=== PATIENT | female | born 1975 | race Caucasian/White ===

== ENCOUNTER 2017-07-23 07:20 | Day surgery (SDC) | payer OTHER ==
[~2017-07-23 07:20] MED LIST: BUPIVACAINE HCL 0.25% /EPINEPHRINE INJ/PF 30 ML SDV ONE
[2017-07-23] MEDS ORDERED: SUCCINYLCHOLINE CHLORIDE INJ 200 MG/10 ML VIAL ONE (07:49)
[2017-07-23] MEDS ORDERED: ONDANSETRON HCL INJ/PF 4 MG/2 ML SDV ONE (07:49)
[2017-07-23] MEDS ORDERED: LIDOCAINE 2% INJ-PF (20 MG/ML) 2 ML AMPUL ONE (07:49)
[2017-07-23] MEDS ORDERED: DEXAMETHASONE SOD PHOSPHATE INJ 4 MG/1 ML VIAL ONE (07:49)
[2017-07-23] MEDS ORDERED: METOCLOPRAMIDE HCL INJ/PF 10 MG/2 ML SDV ONE (07:49)
[2017-07-23] MEDS ORDERED: ROCURONIUM BROMIDE INJ 50 MG/5 ML VIAL IV ONE (07:49)
[2017-07-23 08:06] LABS: APPEARANCE,URINE SLIGHTLY-CLOUDY; BILIRUBIN,URINE NEGATIVE (NEGATIVE); COLOR,URINE YELLOW; GLUCOSE, URINE NEGATIVE (NEGATIVE); KETONES,URINE NEGATIVE (NEGATIVE); LEUKOCYTE ESTERASE,URINE NEGATIVE (NEGATIVE); NITRITE,URINE NEGATIVE (NEGATIVE); PROTEIN,URINE 30 mg/dL (NEGATIVE); URINE SPECIFIC GRAVITY 1.024; UROBILINOGEN,URINE NEGATIVE mg/dL (<2.0)
[2017-07-23] MEDS ORDERED: CEFAZOLIN 2 GM/D5W RTU 2 GM/50 ML RTUPB IV ONE (08:13)
[2017-07-23 08:28] LABS: ABSOLUTE EOSINOPHILS # (AUTO) 0.1 10^3/uL (0.0-0.6); ABSOLUTE LYMPHOCYTES (AUTO) 1.9 10^3/uL (0.5-4.7); ABSOLUTE MONOCYTES (AUTO) 0.6 10^3/uL (0.1-1.4); ABSOLUTE NEUT (AUTO) 4.8 10^3/uL (1.7-8.2); BASOPHILS % (AUTO) 0.6 % (0-2); EOSINOPHILS % (AUTO) 1.9 % (0-6); HEMATOCRIT 37.1 % (36.0-47.0); HEMOGLOBIN 12.3 g/dL (12.0-15.5); LYMPHOCYTES % (AUTO) 25.2 % (13-45); MEAN CORPUSCULAR HEMOGLOBIN 27.3 pg (27.0-33.4); MEAN CORPUSCULAR VOLUME 83 fl (80-97); MONOCYTES % (AUTO) 7.9 % (3-13); PLATELET COUNT 374 10^3/uL (150-450); RED BLOOD COUNT 4.49 10^6/uL (3.72-5.28); RED CELL DISTRIBUTION WIDTH 14.6 % (11.5-14.0); SEGMENTED NEUTROPHILS % (AUTO) 64.4 % (42-78); TOTAL CELLS COUNTED % (AUTO) 100 %; WHITE BLOOD COUNT 7.5 10^3/uL (4.0-10.5)
--- NOTE | 2017-07-23 08:48 | RADIOLOGY REPORT (SQ) ---
EXAM DESCRIPTION: CHEST SINGLE VIEW COMPLETED DATE/TIME: 07/23/2017 8:26 am REASON FOR STUDY: PREOP COMPARISON: None. EXAM PARAMETERS: NUMBER OF VIEWS: One view. TECHNIQUE: Single frontal radiographic view of the chest acquired. RADIATION DOSE: NA LIMITATIONS: None. FINDINGS: LUNGS AND PLEURA: No opacities, masses or pneumothorax. No pleural effusion. MEDIASTINUM AND HILAR STRUCTURES: No masses. Contour normal. HEART AND VASCULAR STRUCTURES: Heart normal in size. Normal vasculature. BONES: No acute findings. HARDWARE: None in the chest. OTHER: No other significant finding. IMPRESSION: NO ACUTE RADIOGRAPHIC FINDING IN THE CHEST. TECHNICAL DOCUMENTATION: JOB ID: [id number] [employer]- All Rights Reserved
[2017-07-23 08:51] LABS: ALANINE AMINOTRANSFERASE 28 U/L (9-52); ALKALINE PHOSPHATASE 54 U/L (38-126); ANION GAP 10 (5-19); ASPARTATE AMINO TRANSFERASE 16 U/L (14-36); BILIRUBIN,DIRECT 0.1 mg/dL (0.0-0.4); BILIRUBIN,TOTAL 0.1 mg/dL (0.2-1.3); BLOOD UREA NITROGEN 15 mg/dL (7-20); CALCIUM 9.2 mg/dL (8.4-10.2); CARBON DIOXIDE 25 mmol/L (22-30); CHLORIDE 105 mmol/L (98-107); GLUCOSE 99 mg/dL (75-110); POTASSIUM 4.2 mmol/L (3.6-5.0); SODIUM 140.3 mmol/L (137-145); TOTAL PROTEIN 6.6 g/dL (6.3-8.2)
[2017-07-23] MEDS ORDERED: FENTANYL CITRATE INJ/PF 100 MCG/2 ML AMPUL ONE (10:17)
[2017-07-23] MEDS ORDERED: ACETAMINOPHEN 100 ML IV ONE (10:18)
[2017-07-23] MEDS ORDERED: HYDROMORPHONE HCL INJ/PF 2 MG/ML AMPULE ONE ×2 (10:18→14:45)
[2017-07-23] MEDS ORDERED: PROPOFOL INJ 200 MG/20 ML VIAL IV ONE (10:18)
[2017-07-23] MEDS ORDERED: EPHEDRINE SULFATE INJ 50 MG/1 ML AMPULE ONE (10:18)
[2017-07-23] MEDS ORDERED: MIDAZOLAM 2 MG/2 ML INJ ONE (10:18)
[2017-07-23] MEDS ORDERED: BUPIVACAINE HCL 0.25 % INJ/PF (2.5 MG/1 ML) 30 ML VIAL ONE (11:08)
[2017-07-23] MEDS ORDERED: ONDANSETRON HCL INJ/PF 4 MG/2 ML SDV IV PRN ×3 (11:24→17:56)
[2017-07-23] MEDS ORDERED: MEPERIDINE HCL/PF INJ 25 MG/1 ML DISP.SYRIN IV PRN ×2 (11:24→17:16)
[2017-07-23] MEDS ORDERED: PROMETHAZINE HCL INJ 25 MG/1 ML VIAL IV PRN ×3 (11:24→17:16)
[2017-07-23] MEDS ORDERED: MORPHINE SULFATE 10 MG/ML INJ IV PRN (11:24)
[2017-07-23] MEDS ORDERED: OXYCODONE-ACETAMINOPHEN 5-325 MG TABLET PO PRN ×3 (11:24→17:57)
[2017-07-23] MEDS ORDERED: DIPHENHYDRAMINE HCL 50 MG/ML VIAL IV PRN ×2 (11:24→17:16)
[2017-07-23] MEDS ORDERED: FENTANYL CITRATE INJ/PF 100 MCG/2 ML AMPUL IV PRN ×6 (11:24→17:16)
--- NOTE | 2017-07-23 13:10 | EKG REPORT ---
SEVERITY:- NORMAL ECG - SINUS RHYTHM : Confirmed by: Reyes Tomas MD 23-Jul-2017 13:09:14
[2017-07-23] MEDS ORDERED: METHYLENE BLUE 50 MG/10 ML AMPULE ONE (13:27)
[2017-07-23] MEDS ORDERED: CEFAZOLIN INJ 1 GM VIAL ONE (14:42)
[2017-07-23] MEDS: PROMETHAZINE HCL INJ 25 MG/1 ML VIAL ONE ×2 (16:50→17:15)
[2017-07-23] MEDS ORDERED: HYDROMORPHONE HCL INJ/PF 2 MG/ML AMPULE IV PRN (17:44)
[2017-07-23] MEDS: RINGERS SOLUTION,LACTATED 1,000 ML IV PRN (20:06)
[2017-07-24] MEDS: OXYCODONE-ACETAMINOPHEN 5-325 MG TABLET PO PRN ×5 (00:27→18:20)
[2017-07-24] MEDS: RINGERS SOLUTION,LACTATED 1,000 ML IV PRN (05:26)
[2017-07-24 06:52] LABS: HEMATOCRIT 30.4 % (36.0-47.0); MEAN CORPUSCULAR HEMOGLOBIN 27.8 pg (27.0-33.4); MEAN CORPUSCULAR HGB CONC 33.4 g/dL (32.0-36.0); MEAN CORPUSCULAR VOLUME 83 fl (80-97); PLATELET COUNT 314 10^3/uL (150-450); RED BLOOD COUNT 3.66 10^6/uL (3.72-5.28); RED CELL DISTRIBUTION WIDTH 14.3 % (11.5-14.0); WHITE BLOOD COUNT 14.4 10^3/uL (4.0-10.5)
[2017-07-24 06:55] LABS: HEMOGLOBIN 10.2 g/dL (12.0-15.5)
--- NOTE | 2017-07-24 08:28 | PDOC CONSULTATION ---
Consultation Consult Date: 07/23/17 Consult reason:: cystotomy History of Present Illness History of Present Illness: KARI JI is a 42 year old female Past Medical History Cardiac Medical History: Denies: Coronary Artery Disease, Myocardial Infarction, Hypertension Pulmonary Medical History: Denies: Asthma, Bronchitis, Chronic Obstructive Pulmonary Disease (COPD), Pneumonia Neurological Medical History: Denies: Seizures Musculoskeltal Medical History: Denies: Arthritis Hematology: Denies: Anemia Social History Smoking Status: Never Smoker Family History Parental Family History Reviewed: No Children Family History Reviewed: No Sibling(s) Family History Reviewed.: No Medication/Allergy Home Medications: No Home Medications 07/19/17 Allergies/Adverse Reactions: No Known Allergies Allergy (Unverified 07/19/17 13:57) Physical Exam Vital Signs: Temp Pulse Resp BP Pulse Ox 97.2 F 92 18 123/67 97 07/23/17 18:40 07/23/17 18:40 07/23/17 18:40 07/23/17 18:40 07/23/17 18:40 Intake & Output 07/23/17 07/24/17 07/25/17 06:59 06:59 06:59 Intake Total 3700 Output Total 700 Balance 3000 Weight 72.57 kg Results Laboratory Results: 07/24/17 06:33 07/23/17 08:15 07/23/17 07/23/17 07/23/17 07:35 08:15 08:15 WBC 7.5 RBC 4.49 Hgb 12.3 Hct 37.1 MCV 83 MCH 27.3 MCHC 33.0 RDW 14.6 H Plt Count 374 Seg Neutrophils % 64.4 Lymphocytes % 25.2 Monocytes % 7.9 Eosinophils % 1.9 Basophils % 0.6 Absolute Neutrophils 4.8 Absolute Lymphocytes 1.9 Absolute Monocytes 0.6 Absolute Eosinophils 0.1 Absolute Basophils 0.0 Sodium Potassium Chloride Carbon Dioxide Anion Gap BUN Creatinine Est GFR ( Amer) Est GFR (Non-Af Amer) Glucose Calcium Total Bilirubin AST ALT Alkaline Phosphatase Total Protein Albumin Urine Color YELLOW Urine Appearance SLIGHTLY-CLOUDY Urine pH 5.0 Ur Specific [place] 1.024 Urine Protein 30 H Urine Glucose (UA) NEGATIVE Urine Ketones NEGATIVE Urine Blood LARGE H Urine Nitrite NEGATIVE Ur Leukocyte Esterase NEGATIVE Urine WBC (Auto) 16 Urine RBC (Auto) >182 Blood Type O POSITIVE Antibody Screen NEGATIVE 07/23/17 07/24/17 08:15 06:33 WBC 14.4 H RBC 3.66 L Hgb 10.2 L D Hct 30.4 L MCV 83 MCH 27.8 MCHC 33.4 RDW 14.3 H Plt Count 314 Seg Neutrophils % Lymphocytes % Monocytes % Eosinophils % Basophils % Absolute Neutrophils Absolute Lymphocytes Absolute Monocytes Absolute Eosinophils Absolute Basophils Sodium 140.3 Potassium 4.2 Chloride 105 Carbon Dioxide 25 Anion Gap 10 BUN 15 Creatinine 0.82 Est GFR ( Amer) > 60 Est GFR (Non-Af Amer) > 60 Glucose 99 Calcium 9.2 Total Bilirubin 0.1 L AST 16 ALT 28 Alkaline Phosphatase 54 Total Protein 6.6 Albumin 4.0 Urine Color Urine Appearance Urine pH Ur Specific [place] Urine Protein Urine Glucose (UA) Urine Ketones Urine Blood Urine Nitrite Ur Leukocyte Esterase Urine WBC (Auto) Urine RBC (Auto) Blood Type Antibody Screen Impressions: Chest X-Ray 07/23/17 00:00 IMPRESSION: NO ACUTE RADIOGRAPHIC FINDING IN THE CHEST. Assessment & Plan - Plan Summary Plan Summary: Intraoperative Consult Pre-op diagnosis: Cystotomy Post-op Diagnosis: Same Procedure: Laparoscopic closure of cystotomy Anesthesia: General Surgeon: Lauren Procedure: During a laparoscopic assisted vaginal hysterectomy a cystotomy was made while dissecting adhesions densely occurring over the bladder. The small cystotomy was recognized and a urology consultation was obtained intraoperatively. The small cystotomy was identified laparoscopically in the posterior superior portion of the bladder on the left side of the patient. An attempt was made using conventional suture to close the cystotomy which was unsuccessful. Utilizing a V lock suture, the cystotomy was closed in a running fashion. The cystotomy was then visualized both laparoscopically and cystoscopically. It appeared that there was good reapproximation of the cystotomy. A Serrano catheter was then placed in the bladder. The remainder the procedure will be dictated by Dr. Vargas.
[2017-07-24] MEDS ORDERED: SIMETHICONE 80 MG TAB.CHEW PO PRN (10:50)
[2017-07-24] MEDS ORDERED: DOCUSATE SODIUM 100 MG CAPSULE PO ONE (12:30)
--- NOTE | 2017-07-24 13:32 | PDOC PROGRESS REPORT ---
Subjective Progress Note for:: 07/24/17 Subjective:: no flatus, no BM, pain well controlled. Tolerating po without difficulty. no nausea/emesis/no f/c Reason For Visit: N93.9 ABNORMAL UTERINE AND VAGINAL BLEEDING, UNSPE Physical Exam - Physical Exam Vital Signs: Temp Pulse Resp BP Pulse Ox 98.2 F 63 15 111/55 L 98 07/24/17 11:41 07/24/17 11:41 07/24/17 11:41 07/24/17 11:41 07/24/17 11:41 Intake & Output 07/23/17 07/24/17 07/25/17 06:59 06:59 06:59 Intake Total 4900 1100 Output Total 2500 1300 Balance 2400 -200 Weight 72.57 kg General appearance: PRESENT: no acute distress, well-developed, well-nourished Head exam: PRESENT: atraumatic, normocephalic Respiratory exam: PRESENT: clear to auscultation brigid, symmetrical, unlabored Cardiovascular exam: PRESENT: RRR. ABSENT: diastolic murmur, rubs, systolic murmur Pulses: PRESENT: normal dorsalis pedis pul, +2 pedal pulses bilateral Vascular exam: PRESENT: normal capillary refill GI/Abdominal exam: PRESENT: normal bowel sounds, soft, tenderness - incisions c/ d/i, approp abd ttp, other. ABSENT: distended, guarding, mass, organolmegaly, rebound Rectal exam: PRESENT: deferred Extremities exam: PRESENT: full ROM. ABSENT: calf tenderness, clubbing, pedal edema Neurological exam: PRESENT: alert, awake, oriented to person, oriented to place , oriented to time, oriented to situation, CN II-XII grossly intact. ABSENT: motor sensory deficit Psychiatric exam: PRESENT: appropriate affect, normal mood. ABSENT: homicidal ideation, suicidal ideation Skin exam: PRESENT: dry, intact, warm. ABSENT: cyanosis, rash Result Laboratory Results: 07/24/17 06:33 07/23/17 08:15 07/24/17 06:33 WBC 14.4 H RBC 3.66 L Hgb 10.2 L D Hct 30.4 L MCV 83 MCH 27.8 MCHC 33.4 RDW 14.3 H Plt Count 314 Impressions: Chest X-Ray 07/23/17 00:00 IMPRESSION: NO ACUTE RADIOGRAPHIC FINDING IN THE CHEST. Status: Imported from PACS Assessment & Plan - Diagnosis (1) Leiomyoma of body of uterus Qualifiers: Uterine leiomyoma location: intramural, submucous, and subserous Qualified Code(s): D25.1 - Intramural leiomyoma of uterus; D25.0 - Submucous leiomyoma of uterus; D25.0 - Submucous leiomyoma of uterus; D25.2 - Subserosal leiomyoma of uterus; D25.2 - Subserosal leiomyoma of uterus Is this a current diagnosis for this admission?: Yes Plan: s/p hysterectomy. If continues to do well then may be able to discharge this pm. (2) cystotomy Is this a current diagnosis for this admission?: Yes Plan: Incidental cystotomy during bladder dissection - bladder adhered over fibroid at prior uterine scar from section. Repaired by Dr. Aguilar. Plan per Urology to have berg to gravity remain for approx 2wks. Appreciate Dr Aguilar's asssistance. - Time Time Spent with patient: Less than 15 minutes Medications reviewed and adjusted accordingly: Yes Anticipated discharge: Home Within: within 48 hours - Inpatient Certification Based on my medical assessment, after consideration of the patient's comorbidities, presenting symptoms, or acuity I expect that the services needed warrant INPATIENT care.: Yes I certify that my determination is in accordance with my understanding of Medicare's requirements for reasonable and necessary INPATIENT services [42 CFR 412.3e].: Yes Medical Necessity: Need for Pain Control Post Hospital Care: D/C Occupational Therapy Manager Documentation
[2017-07-24] MEDS ORDERED: DOCUSATE SODIUM 100 MG CAPSULE PO SCH (18:00)
[2017-07-24 18:41] VITALS: BP 114/75
--- NOTE | 2017-07-25 07:47 | PDOC DISCHARGE SUMMARY ---
General - Admit/Disc Date/PCP Admission Date/Primary Care Provider: Anna Vargas MD Discharge Date: 07/24/17 - Discharge Diagnosis (1) Leiomyoma of body of uterus Is this a current diagnosis for this admission?: Yes Summary: Now s/p LAVH, Cystoscopy with Culdoplasty. Due to multiple fibroids including fibroid overlying prior uterine scar with adhered bladder to fibroid - incidental cystotomy was made. It was recognized with cystoscopy during the procedure and Urology was called. Dr. Aguilar (Urologist) came in for assistance and evaluation of cystotomy and repaired the cystotomy. I very much appreciate his assistance with the care of this patient. (2) cystotomy Is this a current diagnosis for this admission?: Yes Summary: See above note. Dr. Aguilar repaired incidental cystotomy during the hysterectomy yesterday and has recommended that Serrano to gravity remain for approcimately 2 wks. We will re-eval in the office. Leg bag and teaching will be given to the patient prior to discharge. - Additional Information Discharge Diet: As Tolerated Discharge Activity: Activity As Tolerated, Pelvic Rest Prescriptions: Oxycodone HCl/Acetaminophen [Percocet 5-325 mg Tablet] 2 tab PO Q4HP PRN #30 tablet PRN Reason: For Pain Scale 2-4 Simethicone [Mylicon 80 mg Chewable Tablet] 80 mg PO QIDP PRN #90 tab.chew PRN Reason: Simethicone 80 mg PO QIDP PRN #90 tab.chew PRN Reason: Home Medications: Docusate Sodium [Colace 100 mg Capsule] 100 mg PO BID capsule 07/24/17 Oxycodone HCl/Acetaminophen [Percocet 5-325 mg Tablet] 2 tab PO Q4HP PRN #30 tablet 07/24/17 Oxycodone HCl/Acetaminophen [Percocet 5-325 mg Tablet] 2 tab PO Q4HP PRN #30 tablet 07/24/17 Simethicone 80 mg PO QIDP PRN #90 tab.chew 07/24/17 Simethicone [Mylicon 80 mg Chewable Tablet] 80 mg PO QIDP PRN #90 tab.chew 07/24 History of Present Illness Patient complains of: Fibroids, menorrhagia, dysmenorrhea History of Present Illness: KARI JI is a 42 year old female Hospital Course Hospital Course: Admitted to the hospital on 07/23 and underwent LAVH, Cystoscopy, Culdoplasty and Incidental cystotomay repair. Uncomplicated postop course and desires to be discharged to home on POD#1. SHe will f/u in the office in 1 week for eval of bladder as she will be discharged with leg bag. Physical Exam - Physical Exam Vital Signs: Temp Pulse Resp BP Pulse Ox 98.0 F 71 16 115/64 98 07/24/17 16:18 07/24/17 16:18 07/24/17 16:18 07/24/17 16:18 07/24/17 16:18 Intake & Output 07/23/17 07/24/17 07/25/17 06:59 06:59 06:59 Intake Total 4900 1100 Output Total 2500 2200 Balance 2400 -1100 Weight 72.57 kg General appearance: PRESENT: no acute distress, well-developed, well-nourished Head exam: PRESENT: atraumatic, normocephalic Respiratory exam: PRESENT: clear to auscultation brigid, symmetrical, unlabored Cardiovascular exam: PRESENT: RRR. ABSENT: diastolic murmur, rubs, systolic murmur Vascular exam: PRESENT: normal capillary refill GI/Abdominal exam: PRESENT: normal bowel sounds, soft, tenderness - approp ttp, incision c/d/i. ABSENT: distended, guarding, mass, organolmegaly, rebound Rectal exam: PRESENT: deferred Extremities exam: PRESENT: full ROM. ABSENT: calf tenderness, clubbing, pedal edema Neurological exam: PRESENT: alert, awake, oriented to person, oriented to place , oriented to time, oriented to situation, CN II-XII grossly intact. ABSENT: motor sensory deficit Psychiatric exam: PRESENT: appropriate affect, normal mood. ABSENT: homicidal ideation, suicidal ideation Skin exam: PRESENT: dry, intact, warm. ABSENT: cyanosis, rash Result Laboratory Results: 07/24/17 06:33 07/23/17 08:15 07/24/17 06:33 WBC 14.4 H RBC 3.66 L Hgb 10.2 L D Hct 30.4 L MCV 83 MCH 27.8 MCHC 33.4 RDW 14.3 H Plt Count 314 Impressions: Chest X-Ray 07/23/17 00:00 IMPRESSION: NO ACUTE RADIOGRAPHIC FINDING IN THE CHEST. Status: Imported from PACS Plan Discharge Plan: Discharge to home Time Spent: Less than 30 Minutes
--- NOTE | 2017-08-20 12:14 | Operative Report ---
Operative Report DATE OF SURGERY: 07/23/17 PREOPERATIVE DIAGNOSIS: Dysmenorrhea, Menorrhagia, Fibroids POSTOPERATIVE DIAGNOSIS: JOSE RAMON, incidental cystotomy OPERATION: LAVH, Cystoscopy, Culdoplasty, Cystotomy repair SURGEON: CINTIA AQUINO 1ST BEEF PLUCK TRIMMER: FIDELIA FENTON 2ND Golf Course Manager: DEJA MOORE II ANESTHESIA: GA TISSUE REMOVED OR ALTERED: Uterus, cervix, bilateral fallopian tubes COMPLICATIONS: incidental cystotomy ESTIMATED BLOOD LOSS: 200ml INTRAOPERATIVE FINDINGS: enlarged fibroid uterus with moderate scarring from bladder to lower uterine segment. Incidental cystotomy repaired with the assitance of Urology. PROCEDURE: Anesthesia: DOMINICK Hernandez Indications: 42yo with menorrhagia and dysmenorrhea and noted fibroid uterus. She has been on OCPs in past and offered DepotLupron for pain management but declined. She desires definitive management of menorrhagia, dysmenorrhea and fibroid uterus. The risk/benefits/alternatives were reviewed and she desired to proceed with planned procedure. Urine output: 250ml IV fluids: 3400ml Procedure The patient was taken to the operating room where general anesthesia was obtained. The patient was then prepped and placed in the dorsal supine position with lithotomy and prepped and draped in the usual fashion. A speculum was then placed in the patient's vagina and the cervix grasped with a single-tooth tenaculum at approximately the 12 o'clock position of the anterior lip of the cervix. The medium Vesicare device was then placed and suture placed at the 12 o'clock position as well in order to maintain cup against the cervix during procedure. Double-tooth tenaculum and speculum were then removed from the patient's cervix and vagina. Attention was then turned to the abdomen where an infraumbilical skin incision was made and the Veress needle inserted into the abdominal cavity. Aspiration was negative therefore the abdomen was insufflated with carbon dioxide approximately 4 L. After adequate insufflation the Veress needle was removed and the 5 mm Optiview trocar was placed under direct visualization with the laparoscope. Survey of the patient's abdomen and pelvis were performed with findings as noted above. At this time 5mm skin incisions were made approximately 2 cm medial and 4 cm superior to the anterior iliac spine on both the left and the right and then a third and fourth trocar sites placed approximately 4 cm superior to these on both the left and right. 5 mm trochars placed at all of the sites. At this time the right cornua was grasped and the right fallopian tube and utero-ovarian ligament and round ligaments were cauterized and transected in the usual fashion with the LigaSure device the remainder of the uterine vessels in anterior and posterior leaves of the broad ligament as well as cardinal and uterosacral ligaments were coagulated and transected in a serial fashion down to the level of the uterine artery. The uterine artery was then identified and cauterized and transected in the usual fashion with the LigaSure device. The anterior leaf of the broad ligament was then dissected to the midline establishing a bladder flap with a combination of blunt and sharp dissection with notation of difficult dissection due to adhesive disease. Sharp dissection made superiorly bilaterally to the level of the internal os of the cervix. Cautery was then used to make the anterior and posterior colpotomies over the Vesicare device in a circumferential fashion thus freeing the uterus and the cervix which were then removed vaginally and sent to pathology. Prior to the removal of the uterus and the cervix attention was turned to the bilateral fallopian tubes which were serially cauterized and transected and then removed with the uterus and cervix. The ovaries remain in place. Attention was then turned to the vagina where serial vaginal cuff closure was performed with 2-0 Vicryl figure of eight suture placement. Culdoplasty performed in the usual fashion with 2 -0 ethibond suture and prior to cinching down this suture cystoscopy was performed in the usual fashion. During Cystoscopy a small cystotomy was noted in the bladder dome. At this time , Urology was consulted to assist with Cystotomy closure via laparoscope. Please see note from Dr. Moore. Cystoscopy was performed intermittently during cystotomy closure to determine effectiveness of closure. Once closure achieved, attention was then returned to the vagina where vaginal cuff closure was completed. Final look via laparoscope noted hemostasis of vaginal cuff. Interceed placed over cystotomy closure and vaginal cuff to deter adhesions. Pneumoperitoneum was evacuated and all operative sites were noted to be hemostatic. Trocar sites were closed with 3-0monocryl and then overlying dermabond. Ancef 2g given preop and redosed during surgery due to length of procedure. Instrument count was correct times two and patient tolerated the procedure well and was taken to the recovery area awake and in stable location.
== END 2017-07-24 19:15 | disposition home or self-care (01) ==
LOC: OROUT 07:20 → 2N 18:03 → OROUT 07-24 19:15
PROVIDERS: ATTEND Student in an Organized Health Care Education/Training Program
PROC: 0UT7FZZ Resection of Bilateral Fallopian Tubes, Via Natural or Artificial Opening With Percutaneous Endoscopic Assistance (ICD-10-PCS; 2017-07-23)
PROC: 0TQB4ZZ Repair Bladder, Percutaneous Endoscopic Approach (ICD-10-PCS; 2017-07-23)
PROC: 0UT9FZZ Resection of Uterus, Via Natural or Artificial Opening With Percutaneous Endoscopic Assistance (ICD-10-PCS; principal; 2017-07-23 09:30)
DX: D25.1 Intramural leiomyoma of uterus (principal); D25.0 Submucous leiomyoma of uterus; N99.72 Accidental puncture and laceration of a genitourinary system organ or structure during other procedure; N94.6 Dysmenorrhea, unspecified; N93.9 Abnormal uterine and vaginal bleeding, unspecified; N88.8 Other specified noninflammatory disorders of cervix uteri; Z87.891 Personal history of nicotine dependence
CPT/HCPCS: 86900; 86901; 36415; 86850; 85025; 85027; 81025; 80053; 81001; 88307 ×2; 71045; 93005; 93010; 58552; 51860; C1765; J2250; J0690 ×2; J3490 ×3; J1100; J3010; J2765; J1170; J2550; J0330; J2405; J7120 ×2; J2704; J0131; Q9968; 840

== ENCOUNTER → 2020-05-11 | Outpatient (CLI) | payer OTHER ==
--- NOTE | 2020-05-11 08:11 | WOMENS IMAGING REPORT ---
EXAM DESCRIPTION: BILAT SCREENING MAMMO W/CAD IMAGES COMPLETED DATE/TIME: 05/11/2020 7:14 am REASON FOR STUDY: Z12.31 ENCNTR SCREEN MAMMOGRAM FOR MALIGNANT NEOPLASM OF BREAST Z12.31 ENCNTR SCR EEN MAMMOGRAM FOR MALIGNANT NEOPLASM OF [place] COMPARISON: None. EXAM PARAMETERS: Standard craniocaudal and mediolateral oblique views of each breast recorded using digital acquisition. Read with the assistance of CAD. .[facility] - A [place] [employer] Version 9.2 LIMITATIONS: None. FINDINGS: No suspicious masses, suspicious calcifications or architectural distortion. No areas of c oncern. IMPRESSION: NEGATIVE MAMMOGRAM. BIRADS 1 BREAST DENSITY: b. There are scattered areas of fibroglandular density. BIRAD: ASSESSMENT: 1 NEGATIVE RECOMMENDATION: ROUTINE SCREENING COMMENT: The patient has been notified of the results by letter per MQSA requirements. Additional no tification policies are in place for contacting patient with suspicious or incomplete findings. Quality ID #225: The [employer] recommends an annual screening mammogram for women aged 40 years or over. This facility utilizes a reminder system to ensure that all patients receive reminder letters, and/or direct phone calls for appointments. This includes reminders for routine scr eening mammograms, diagnostic mammograms, or other Breast Imaging Interventions when appropriate. Th is patient will be placed in the appropriate reminder system. TECHNICAL DOCUMENTATION: FINDING NUMBER: (1) ASSESSMENT: (1) JOB ID: [id number] 2010 [employer]- All Rights Reserved Reading location - IP/workstation name: [email or web address]
== END ==
LOC: WI 06:51
PROVIDERS: ATTEND Family Medicine
DX: Z12.31 Encounter for screening mammogram for malignant neoplasm of breast (principal)
CPT/HCPCS: 77067